=== PATIENT | female | born 1965 | race African-American/Black ===

== ENCOUNTER 2017-12-20 11:52 | Emergency (ER) | payer MEDICAID ==
[~2017-12-20] VITALS: Ht 162.6 cm; Wt 64.0 kg
[~2017-12-20 11:52] MED LIST: ALBU18HF2 IH; CARV6.2548 PO; CLON0.1T PO; DIGO250T81 PO; FURO80TA87 PO; GABA-290 PO; GLIP10TA10 PO; HYDR50TA54 PO; LISI2.5T47 PO; LISI40TA4 PO; ONDA8TAB6 PO; PLAVIX PO; TRAM50TA3 PO; ZOLP10TA2 PO
[2017-12-20] MEDS ORDERED: TRAMADOL 50MG TABLET PO ONE (15:15)
[2017-12-20 15:21] VITALS: BP 136/78
== END 2017-12-20 17:38 | disposition home or self-care (01) ==
LOC: ER 12:00
DX: M54.40 Lumbago with sciatica, unspecified side (principal); G89.29 Other chronic pain; M86.9 Osteomyelitis, unspecified; E11.69 Type 2 diabetes mellitus with other specified complication; I10 Essential (primary) hypertension; I25.10 Atherosclerotic heart disease of native coronary artery without angina pectoris; D64.9 Anemia, unspecified; Z95.0 Presence of cardiac pacemaker
CPT/HCPCS: 96361; 96374; 96375; 99284